=== PATIENT | female | born 1975 | race Caucasian/White ===

== ENCOUNTER 2022-05-26 10:59 | Emergency (ER) | payer OTHER, SELFPAY ==
[2022-05-26 11:03] VITALS: BP 147/99; PULSE 92; RESP 24; TEMP 36.4; O2SAT 98; BMI 29.5
[2022-05-26 11:33] LABS: Appearance Urine Clear (Clear); Bilirubin Urine Negative (Negative); Blood Urine 2+ (Negative); Color Urine Yellow (Yellow); Glucose Urine Negative (Negative); Ketones Urine Negative (Negative); Leukocyte Esterase Urine 1+ (Negative); Nitrite Urine Negative (Negative); Protein Urine Negative (Negative); Urobilinogen Urine 0.2 (0.2-1.0); pH Urine 6.5 (5.0-8.5)
[2022-05-26 11:44] LABS: Squamous Epithelial Cell Urine Moderate (None-Few)
--- NOTE | 2022-05-26 12:15 | ED_ITS ---
[facility] - General Adult General Date Seen: 05/26/22 Chief complaint: Urogenital Problems, Female Stated complaint: Lower abdominal pain, cannot urinate Time Seen by Provider: 05/26/22 11:04 Source: patient Mode of arrival: ambulatory Limitations: no limitations History of Present Illness HPI narrative: Patient is a 46-year-old woman who presents for evaluation of dysuria and low back pain. She says she has had some symptoms for a couple weeks but it has been worse the past couple of days and she is now having trouble voiding because of discomfort. She has frequency and urgency. She has not noted hematuria. She does have a history of urinary tract infections and this feels similar. She also has a history of pelvic infection but says that this does not feel like that. She is not having unusual vaginal discharge. She has not had any abdominal pain, fevers, chills, vomiting. She still gets periods although they are somewhat irregular, she had two last month. No suspicion of . Here today with her boyfriend. 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 Denies other significant medical history. No allergies. Related Data Home Medications Medication Instructions Recorded Confirmed No Known Home Medications 05/26/22 05/26/22 Allergies Allergy/AdvReac Type Severity Reaction Status Date / Time No Known Drug Allergies Allergy Verified 05/26/22 11:08 Review of Systems Status of ROS: Reports: 10 or more systems reviewed and unremarkable except as noted in History and below Exam Narrative: Exam Narrative: Vital signs as noted above. In general, an alert, nontoxic middle-aged woman. Head: Normocephalic, atraumatic. Eyes: Pupils are equal reactive. Extraocular movements are full. Conjunctivae are normal. ENT: Mucous membranes are moist. Neck: Supple without lymphadenopathy. Heart: Regular rate and rhythm. No murmur or rub. Lungs: Clear bilaterally. No increased work of breathing, crackles or wheezes. Abdomen: Soft and nontender. No CVA tenderness. Extremities: Well perfused. No edema. No calf tenderness. Pulses intact. Neurologic: Patient is alert and oriented to person and place. Speech is fluent. Face is symmetric. Moves all extremities equally. Affect: Normal. Skin: Warm and dry. Well perfused. Const: Vital Signs, click to edit/add: Vital Signs - 24 hr 05/26/22 11:03 Temperature 97.6 F Pulse Rate [Right Pulse Oximeter] 92 Respiratory Rate 24 Blood Pressure [Ri ght Upper Arm] 147/99 H Pulse Oximetry 98 Oxygen Delivery Me thod Room Air Documenting provider has reviewed patient's vital signs: yes Course Course Hospital Course: I ordered Pyridium 200 mg to help with urinary symptoms. Urinalysis is consistent with possible infection with 5-10 white blood cells 2-5 red blood cells. Clinically she looks nontoxic, she is afebrile, vital signs are normal, she does not have any symptoms to suggest pyelonephritis or systemic infection. She does not have abdominal pain or complaints of vaginal discharge, abdomen is nontender, and overall I think it is reasonable to treat her initially is urinary tract infection. Did discuss with her that if she is not improving over the next couple of days she should be seen again to make sure that we are not missing something else. She is comfortable with that plan. Pyridium as needed over the next day or 2 for symptomatic treatment, Macrobid as ordered. Return at any time for worsening such as fever, chills, vomiting, flank pain cetera. Vital Signs Vital signs: Initial Vital Signs Temperature 97.6 F 05/26/22 11:03 Temperature Source Temporal Artery Scan 05/26/22 11:03 Pulse Rate 92 05/26/22 11:03 Respiratory Rate 24 05/26/22 11:03 Blood Pressure 147/99 H 05/26/22 11:03 Blood Pressure Mean 115 05/26/22 11:03 Blood Pressure Position Sitting 05/26/22 11:03 Pulse Oximetry 98 05/26/22 11:03 Oxygen Delivery Method Room Air 05/26/22 11:03 Vital Signs Temperature 97.6 F 05/26/22 11:03 Pulse Rate 92 05/26/22 11:03 Respiratory Rate 24 05/26/22 11:03 Blood Pressure 147/99 H 05/26/22 11:03 Pulse Oximetry 98 05/26/22 11:03 Oxygen Delivery Method Room Air 05/26/22 11:03 Temperature 97.6 F 05/26/22 11:03 Pulse Rate 92 05/26/22 11:03 Respiratory Rate 24 05/26/22 11:03 Blood Pressure 147/99 H 05/26/22 11:03 Pulse Oximetry 98 05/26/22 11:03 Oxygen Delivery Method Room Air 05/26/22 11:03 Medical Decision Making Lab Data Labs: Lab Results 05/26/22 Range/Units 11:27 Urine Color Yellow (Yellow) Urine Appearance Clear (Clear) Urine pH 6.5 (5.0-8.5) Ur Specific [place] 1.010 (1.000-1.030) Urine Protein Negative (Negative) Urine Glucose (UA) Negative (Negative) Urine Ketones Negative (Negative) Urine Blood 2+ A (Negative) Urine Nitrite Negative (Negative) Urine Bilirubin Negative (Negative) Urine Urobilinogen 0.2 (0.2-1.0) Ur Leukocyte Esterase 1+ A (Negative) Urine RBC 2-5 A (0-2) Urine WBC 5-10 A (0-5) Ur Squamous Epith Cells Moderate A (None-Few) Urine Bacteria None (None) Discharge Plan Discharge Clinical Impression: Urinary tract infection Patient Disposition: Home, Self-Care Condition: Stable Instructions: Urinary Tract Infection in Women (DC) Additional Instructions: Antibiotic as prescribed. Recommend Pyridium to help with discomfort until the antibiotic kicks in. If you are not improved over the next 24-48 hours, he should be seen again. Likewise if you develop worsening symptoms such as fever, vomiting, chills cetera you should be seen again right away. Prescriptions: No Action No Known Home Medications Stand Alone Forms: MyHealth Info Instructions
[2022-05-26] MEDS: PHENAZOPYRIDINE HCL 200 MG TABLET PO (12:26)
== END 2022-05-26 12:28 | disposition home or self-care (01) ==
LOC: ED 11:49
PROVIDERS: Emergency Provider Emergency Medicine
DX: N39.0 Urinary tract infection, site not specified (principal)
CPT/HCPCS: 81001; 87086; 99283; 99284; A9270